=== PATIENT | male | born 1955 | race Two or more races ===

== ENCOUNTER 2019-01-22 03:57 | Emergency (ER) | payer OTHER ==
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
[2019-01-22 11:07] VITALS: BP 164/89
== END 2019-01-22 11:26 | disposition home or self-care (01) ==
LOC: ER 03:57
DX: S16.1XXA Strain of muscle, fascia and tendon at neck level, initial encounter (principal); S39.012A Strain of muscle, fascia and tendon of lower back, initial encounter; V89.2XXA Person injured in unspecified motor-vehicle accident, traffic, initial encounter; I10 Essential (primary) hypertension
CPT/HCPCS: 99284; 72110; 72070; 72125; L0120